=== PATIENT | female | born 1965 | race Caucasian/White ===

== ENCOUNTER 2023-01-06 13:52 | Outpatient (RCR) | payer BC, SELFPAY ==
--- NOTE | 2023-01-06 15:14 | PTOPEVAL1 ---
Assessment and note entered by Candi Chaudhry, PT, CLT Evaluation Information Assessment Status Evaluation Diagnosis lymphedema Reported Pain Level Pain Score 7: Self Report Additional Pain Score Comments had MRI of neck, to see neurosurgeon; have radicular pain into L hand-numbness Assessment PT Clinical Summary Gail is scheduled to have R breast lumpectomy with axillary node dissection on February 03. She has had chemotherapy and will have radiation therapy post op. She has orders for pre op education and UE measurement. Education was provided to pt and measurements were taken and issued to her for self comparison post op. Will await further orders if she needs lymphedema therapy post op. Plan of Care PT Services Indicated Yes Treatment Frequency and will require additional orders post op if PT is to Duration continue These treatments will address the objective and functional deficits as defined above. The patient will be advanced safely and appropriately in order for the patient to progress towards his/her prior level of function. Additional exercises will be introduced and as well as a comprehensive home exercise program upon discharge, if needed, ?to ensure carryover of functional gains achieved in the clinic. This treatment plan has been reviewed and agreement upon by the patient.
--- NOTE | 2023-03-17 11:29 | PTOPDC ---
Assessment and note entered by Candi Chaudhry, PT Evaluation Information Assessment Status Discharge - Pt Not Present Diagnosis lymphedema Assessment PT Clinical Summary Further orders were not received post op; Therefore, she will be discharged at this time. Plan of Care PT Services Indicated No
== END 2023-03-18 08:30 | disposition home or self-care (01) ==
LOC: ANHPT 13:52
PROVIDERS: PCP Family Medicine
DX: C50.411 Malignant neoplasm of upper-outer quadrant of right female breast (principal); C77.3 Secondary and unspecified malignant neoplasm of axilla and upper limb lymph nodes; Z17.0 Estrogen receptor positive status [ER+]
CPT/HCPCS: 97161

== ENCOUNTER 2023-03-21 10:55 | Outpatient (RCR) | payer BC, SELFPAY ==
--- NOTE | 2023-03-21 11:58 | OPREHPOC ---
Outpatient Therapy Plan of Care This is a Multidisciplinary Plan of Care that may contain components documented by all disciplines (PT, OT, and ST.) PT Problem 1 PT Problem #1 Knowledge Deficit PT Goal 1 Goal 1* indep with HEP for R shoulder 2* indep with self massage for improved lymph flow PT Problem 2 PT Problem #2 Impaired Flexibility PT Goal 1 Goal R shoulder active ROM in standing, pt maintain during radiation: 1* flexion 160' 2* abduction 160' 3* IR- reach behind back, finger to bra strap 4* ER- reach to back of head with palm PT Problem 3 PT Problem #3 Impaired Lymphatic System PT Goal 1 Goal as radiation progresses: 1* R UE: circumferential measurement up to 44 cm, 300 cm 2* no firmness of tissue over R arm 3* good scar mobility of R axillary incision 4* no pocket of fluid inferior to axillary scar
--- NOTE | 2023-03-21 11:58 | PTOPEVAL1 ---
Assessment and note entered by Candi Chaudhry, PT Evaluation Information Assessment Status Evaluation Diagnosis lymphedema Onset 02-03-23 Subjective Information on 02-03-23: lumpectomy and lymph node removal; do not have any restrictions from dr, except lifting heavy things; Activity: have returned to all home tasks except heavy lifting; have not been doing any specific exercises for R arm, but using it with washing windows, cleaning home, making beds; Reported Pain Level Pain Score Self Report Additional Pain Score Comments pain range in the past week -12/09; stretching and tight over incisional area- R axilla/ lateral trunk/breast increase after using arm more, lifting up high and end of day decrease with rest, massage with cocoa butter; ibuprofen rare at end of day; does not limit her activity level or stop her from doing things; is able to sleep on R side without any troubles; tingling and numbness in fingers; difficulty putting earring backs on and fine motor tasks previously had cervical pain with radicular into both upper arms, no longer have any neck or arm pain Assessment PT Clinical Summary Gail has the diagnosis of R breast cancer, s/p lumpectomy with axillary node removal. She had chemotherapy prior to surgery. She reports she has been moving her R arm, using it for home tasks and does not notice any swelling in her arm. Radiation treatments will begin next week, with 33 sessions planned. Gail was seen here pre op for education and UE measurements. With the evaluation today-- her circumferential measurement of her R arm is 3 cm less than with the last measurement; R arm tissue looks good; reports tightness over R shoulder at end ranges of motion, but ranges WNL; with supine full flexion of shoulder reports some pulling along humerus and elbow; axillary scar has slight decrease mobility, with small area of fluid pocketed inferior to scar.
--- NOTE | 2023-05-23 16:00 | PTOPDC ---
Assessment and note entered by Candi Chaudhry, PT Evaluation Information Assessment PT Clinical Summary DISCHARGE PHYSICAL THERAPY Ms. De Los Santos did not return for any further treatment after the PT evaluation on 03-21-23; Therefore, she will be discharged at this time. Plan of Care PT Services Indicated No
== END 2023-05-26 11:47 | disposition home or self-care (01) ==
LOC: ANHPT 10:55
DX: C50.411 Malignant neoplasm of upper-outer quadrant of right female breast (principal); Z17.0 Estrogen receptor positive status [ER+]
CPT/HCPCS: 97140; 97161